=== PATIENT | female | born 1955 | race Caucasian/White ===

== ENCOUNTER 2021-06-02 14:43 | Emergency (ER) | payer MEDICAID ==
[~2021-06-02] VITALS: Ht 152.4 cm; Wt 71.7 kg
[2021-06-02 15:04] VITALS: BP 128/80
[2021-06-02] MEDS ORDERED: PROCHLORPERAZINE 10 MG/2 ML VIAL IVP ONE (15:50)
[2021-06-02] MEDS ORDERED: ACETAMINOPHEN EXTRA STRENGTH 500 MG TAB PO ONE (15:50)
[2021-06-02] MEDS ORDERED: diphenhydrAMINE 50 MG/ML VIAL IVP ONE (15:50)
[2021-06-02] MEDS ORDERED: NACL 0.9% 1,000 ML IV ONE ×2 (15:50→18:00)
--- NOTE | 2021-06-02 16:06 | NUR ---
LABS WERE DRAWN FROM IV, GIVEN TO WALLY PHLEB AT THIS TIME
[2021-06-02 16:16] LABS: BASOPHILS # (AUTO) 0.1 K/uL (0.00-0.22); BASOPHILS % (AUTO) 0.3 % (0.0-2.0); HEMATOCRIT 35.8 % (36-48); LYMPHOCYTES # (AUTO) 1.3 K/uL (2.5-16.5); MEAN CORPUSCULAR HEMOGLOBIN 29 pg (27-31); MEAN CORPUSCULAR HGB CONC 34 g/dL (33-37); MEAN CORPUSCULAR VOLUME 86.1 fL (80-94); MONOCYTES # (AUTO) 0.9 K/uL (0.8-1.0); MONOCYTES % (AUTO) 4.7 % (1.7-9.3); NEUTROPHILS # (AUTO) 16.7 K/uL (1.8-7.7); PLATELET COUNT (AUTO) 198 K/uL (140-450); RED BLOOD CELL COUNT(AUTO) 4.16 MIL/uL (4.20-5.40); RED CELL DISTRIBUTION WIDTH 15.3 % (11.6-13.7)
--- NOTE | 2021-06-02 16:20 | NUR ---
65 Y/O F BIB SELF FROM HOME, PATIENT PRESENTS TO ED WITH MIGUEL THAT STARTS ON R TEMPORAL AND RADIATES TO L SIDE OF HEAD AND BILATERAL SHOULDERS. PT STATES SHE HAS BEEN ALSO HAVING SOB, DRY COUGH, CHILLS, NAUSEA AND SHAKING. DENIES VOMITING, DIARRHEA, DYSURIA AND HEMATURIA; SKIN IS PINK/WARM/DRY; AAOX4 WITH EVEN AND STEADY GAIT; LUNGS CLEAR BL; HR EVEN AND TACHY; PATIENT STATES PAIN OF 10/10 AT THIS TIME; PATIENT POSITIONED FOR COMFORT; HOB ELEVATED; BEDRAILS UP X2; BED DOWN. ER MD MADE AWARE OF PT STATUS. PMH: ASTHMA, HTN, SEASONAL ALLERGIES, HYPERLIPIDEMIA MED: LISINOPRIL, ATORVASTATIN NKA
[2021-06-02 16:32] LABS: ALBUMIN 3.8 g/dL (3.4-5.0); ANION GAP 15.3 (8-16); CARBON DIOXIDE 24.8 mmol/L (21-32); CREATININE 1.7 mg/dL (0.6-1.3); POTASSIUM 5.1 mmol/L (3.5-5.1); TOTAL BILIRUBIN 0.7 mg/dL (0.0-1.0)
--- NOTE | 2021-06-02 19:05 | NUR ---
REPORT GIVEN TO PRICILLA THOMAS
[2021-06-02 20:36] LABS: APPEARANCE,URINE CLEAR (CLEAR); BILIRUBIN,URINE NEGATIVE (NEGATIVE); BLOOD, URINE 1+ (NEGATIVE); COLOR,URINE YELLOW (YELLOW); LEUKOCYTE ESTERASE ,URINE 3+ (NEGATIVE); NITRITE, URINE NEGATIVE (NEGATIVE); UGLUCOSE NEGATIVE (NEGATIVE)
[2021-06-02 20:42] LABS: WBC,URINE 20-60 /HPF (0-5)
[2021-06-02] MEDS ORDERED: SULF-59 PO (21:31)
[2021-06-02] MEDS ORDERED: cefTRIAXone 1,000 MG VIAL ONE (22:02)
[2021-06-02 22:32] VITALS: BP 110/60
--- NOTE | 2021-06-02 22:36 | NUR ---
[PATIENT ALERT ORIENTED STABLE DC HOME VITALS SIGNS IN NORMAL LIMITS ALL DC INSTRUCTION GAVE AND EXPLAINED TO THE PATIENTWE RECOMMEND TO FOLLOW UP WITH PCP OR COMING BACK TO THE HOSPITAL IF THE SYMPTOMS GET WORSE OR DOESNT IMPROVING //Porfirio THOMAS
== END 2021-06-02 22:17 | disposition home or self-care (01) ==
LOC: MED 14:43
DX: N10 Acute pyelonephritis (principal); Z20.822 Contact with and (suspected) exposure to COVID-19; I10 Essential (primary) hypertension; Z79.899 Other long term (current) drug therapy
CPT/HCPCS: 36415; 71045; 74176; 80053; 81001; 85025; 87086; 93005; 96361; 96365; 96375; 99285; J0696; J0780; J1200; J7030; Q0092; U0003

== ENCOUNTER 2024-01-09 14:21 | Emergency (ER) | payer BC, MEDICAID ==
[~2024-01-09] VITALS: Ht 151.1 cm; Wt 72.7 kg
[~2024-01-09 14:21] MED LIST: SULF-59 PO
[2024-01-09 14:42] VITALS: BP 137/83; PULSE 79; RESP 20; TEMP 97.3; O2SAT 99
[2024-01-09] MEDS: ALBUTEROL SULFATE/IPRATROPIU 3 ML SOL IH ONE (15:05)
[2024-01-09] MEDS: ALBUTEROL 0.083% 2.5 MG/3 ML NEBU INH ONE (15:06)
[2024-01-09 15:07] VITALS: O2SAT 96
[2024-01-09] MEDS ORDERED: PRED20TA5 PO (15:08)
[2024-01-09 15:11] VITALS: PULSE 73; RESP 18; O2SAT 96
[2024-01-09] MEDS: predniSONE 20 MG TAB PO ONE (15:22)
[2024-01-09 16:21] VITALS: BP 133/81; PULSE 78; RESP 20; TEMP 97.5; O2SAT 98
== END 2024-01-09 16:21 | disposition home or self-care (01) ==
LOC: MED 14:21
DX: J45.909 Unspecified asthma, uncomplicated (principal); I10 Essential (primary) hypertension; Z79.899 Other long term (current) drug therapy
CPT/HCPCS: 94640; 99283; J7512; J7613